=== PATIENT | female | born 1955 | race Caucasian/White ===

== ENCOUNTER 2018-12-28 16:27 | Emergency (ER) | payer BC, OTHER ==
[2018-12-28] MEDS: PROPOFOL 200 MG INJ IV (17:00)
[2018-12-28] MEDS: HYDROmorphONE 1 MG/ML SYG IV (18:28)
[2018-12-28] MEDS: ONDANSETRON 4 MG INJ IV (18:28)
== END 2018-12-28 18:36 | disposition home or self-care (01) ==
LOC: E/R 16:27
DX: S82.52XP Displaced fracture of medial malleolus of left tibia, subsequent encounter for closed fracture with malunion (principal); W18.30XA Fall on same level, unspecified, initial encounter; Y92.89 Other specified places as the place of occurrence of the external cause
CPT/HCPCS: 27810; 73610; 96374; 96375; 99285-25